=== PATIENT | female | born 1985 | race Caucasian/White ===

== ENCOUNTER 2017-02-02 00:17 | Emergency (ER) | payer OTHER ==
[2017-02-02 00:30] LABS: Urine Bilirubin Negative (NEGATIVE); Urine Blood Negative /ul (NEGATIVE); Urine Ketone Negative (NEGATIVE); Urine Nitrite Negative (NEGATIVE); Urine Protein Negative (NEGATIVE); Urine Specific Gravity 1.025 SP.GR. (1.005-1.010); Urine Urobilinogen Normal (NORMAL)
[2017-02-02 00:42] LABS: Urine Appearance Clear; Urine Bacteria None Seen; Urine Color Yellow; Urine RBC None Seen /hpf (0-5); Urine WBC None Seen /hpf (0-5)
[2017-02-02 00:51] LABS: Hematocrit 37.1 % (37.0-47.0); Hemoglobin 12.9 gm/dL (12.5-16.0); Mean Cell Volume 85.3 fl (78-100); Mean Corpuscular Hemoglobin 29.7 pg (27-31); Mean Corpuscular Hgb Conc 34.8 g/dl (32-36); Mean Platelet Volume 9.4 fl (6.0-9.5); Neutrophil % 59.6 % (42-75.0); Platelet Count 247 K/mm3 (150-450); Red Blood Count 4.35 M/mm3 (4.2-5.4); Red Cell Distribution Width 12.9 % (11.5-14.0)
[2017-02-02] MEDS ORDERED: NORMAL SALINE 1,000 ML IV ONE (01:01)
--- NOTE | 2017-02-02 01:01 | ERNOTE ---
ER Female HPI Date of Service: 02/02/17 Stated Complaint: CRAMPING - 8 WEEKS Presenting Symptoms: pelvic pain, vaginal discharge Time Seen by Provider: 02/02/17 00:45 Source: patient, RN notes reviewed Exam Limitations: no limitations Immunizations: IMMUNIZATION HX Immunizations Up to Date Yes History of Influenza Vaccine Yes Hx Pneumococcal Vaccination Yes Allergies/Adverse Reactions: Allergies cefaclor [From Ceclor] Allergy (Verified 02/02/17 00:24) Penicillins Allergy (Verified 02/02/17 00:24) Home Medications: HOME MEDICATIONS Nik361/Iron Fumarate/FA/Dss [ 19 Tablet] 1 each PO DAILY 02/02/17 [Last Taken Unknown] metroNIDAZOLE [Metrogel-Vaginal] 70 gm VG DAILY #1 gel.w.appl 02/02/17 [Last Taken Unknown] - History of Present Illness Narrative: maura is a 31 year old female who presents to the er with c/o suprapubic cramps for 1 day. states that she is currently 8 weeks . LMP 12/05/16. denies any vaginal bleeding. no fever. c/o malaise. no n/v. states that she feels she has been drinking enough water during the day but also states that he urine has been dark colored throughout the day. no cp, no dyspnea. no syncope. suprapubic cramps were an 8 upon arrival to the ER but this has decreased to a 3-4/10 after voiding. Timing: Present: constant, getting worse Quality: Present: moderate, severe, cramping Onset Location: Present: suprapubic Radiation: Present: none Activities at Onset: Present: none Prior Abdominal Problems: Present: none Sexual Emmet History: Present: other - currently Modifying Factors - (Improves): Present: other - none Modifying Factors - (Worsens): Present: other - none Associated Symptoms: Present: denies symptoms Review of Systems - Review of Systems Constitutional: Present: malaise. Absent: fever, chills EYE: Present: no symptoms reported ENT: Present: no symptoms reported Respiratory: Present: no symptoms reported Cardiology: Present: no symptoms reported Gastrointestinal/Abdominal: Present: other - suprapubic cramping Genitourinary: Present: pain, discharge - vaginal Musculoskeletal: Present: no symptoms reported Skin: Present: no symptoms reported Neurological: Present: no symptoms reported Endocrine: Present: no symptoms reported Hematologic/Lymphatic: Present: no symptoms reported Psych: Present: no symptoms reported All Other Systems: All systems neg except as marked - Patient's Past Medical History Patient History - Medical: No pertinent hx Patient History - Cardiac/Respiratory: No pertinent hx Patient History - Cancer: No Hx of Cancer Patient History - Surgical Procedures: LMP (females 10-50): - Social History Living Situations: home Psych History: No pertinent hx Smoking Status: Never smoker Alcohol Use: none Drug Use: none - Immunizations Immunizations Up to Date: Yes Hx Pneumococcal Vaccination: Yes History of Influenza Vaccine: Yes Physical Exam - Physical Exam General Appearance: Present: wd/wn, alert, mild distress Eye Exam: Normal inspection: bilateral, PERRL: bilateral Ears, Nose, Throat: Present: normal ENT inspection Neck: Present: nontender, supple, other Respiratory: Present: no respiratory distress, normal breath sounds, no accessory muscle use, chest nontender, lungs clear Cardiovascular/Chest: Present: regular rate, rhythm, normal peripheral pulses Peripheral Pulses: N=norm/S=strong/W=weak/B=bound/A=absent: Radial (R): Strong, Radial (L): Strong, Dorsalis-pedis (R): Strong, Dorsalis-pedis (L): Strong Gastrointestinal/Abdominal: Present: nontender, nondistended, soft Rectal Exam: Present: nontender Back Exam: Present: normal inspection, no CVA tenderness, no vertebral tenderness Extremity Exam: Present: normal inspection, non-tender, normal range of motion, no edema Neurological Exam: Present: alert, oriented, normal mood/affect Skin Exam: Present: normal color, warm/dry Pelvic Exam: Present: discharge - yellowish white vaginal discharge present with odor - sent for wet prep. . Absent: active bleeding ED Progress - Date and Time Seen: Date and Time: 02/02/17 01:12 wet prep shows: - no yeast or trich - rare bacteria - rare wbc - rare wbc - clue cells present - rare rbc's. - Results and Orders Results and Orders: Laboratory Tests 02/02/17 02/02/17 00:26 00:45 WBC 10.0 Hgb 12.9 Hct 37.1 Plt Count 247 Neutrophils % 59.6 Eosinophils # 0.1 Urine Color Yellow Urine Appearance Clear Urine pH 6.0 Ur Specific Bishop 1.025 Urine Protein Negative Urine Glucose (UA) Negative Urine Ketones Negative Urine Blood Negative Urine Nitrate Negative Urine Bilirubin Negative Urine Urobilinogen Normal Ur Leukocyte Esterase Negative Urine RBC None seen Urine WBC None seen Ur Epithelial Cells >25 H Urine Bacteria None seen Urine Culture Comments No culture indicated Laboratory Tests 02/02/17 02/02/17 00:45 00:45 Sodium 139 Potassium 3.5 Chloride 103 Carbon Dioxide 25.3 Anion Gap 14.2 H BUN 10 Creatinine 0.61 Est GFR (Non-Af Amer) 123 D BUN/Creatinine Ratio 16.4 Random Glucose 95 Calcium 8.8 Calcium Adj for Albumin 9.1 Total Bilirubin 0.1 AST 14 ALT 21 Alkaline Phosphatase 50 Total Protein 6.9 Albumin 3.2 L Maternal Serum HCG [id number] H - Vital Signs Vital Signs: Vital Signs 02/02/17 00:20 Temperature 36.9 C Pulse Rate 77 Respiratory 18 Rate Blood Pressure 120/71 O2 Sat by Pulse 100 Oximetry - Progress/Reassessment Chief Complaint: Genitourinary Problem Progress:: Improved Departure Clinical Impression: BV (bacterial vaginosis), Mild dehydration Qualifiers: Weeks of gestation: unspecified Qualified Code(s): Z33.1 - state, incidental - Departure Disposition: Home self-care Condition: Stable Instructions: Bacterial Vaginosis, Rehydration, Adult Additional Instructions: Push lots of fluids. Start Metrogel vaginal in the am. Prescriptions: metroNIDAZOLE [Metrogel-Vaginal] 70 gm VG DAILY #1 gel.w.appl
--- OUTSIDE RECORDS SUMMARY | 2017-02-02 01:05 | XMS REPORT | Continuity of Care Document ---
:1985 Author Organization [facility] ([facility]) Address [address] [place] [address] Phone [phone] Care Team Providers Name Role Phone Unavailable Primary Care Provider Unavailable Source Comments This disclosure is being made pursuant to the Care Everywhere program, applicable federal and state laws, and may not contain all informaitonavailable regarding this patient.[facility] ([facility]) Active Allergies and Adverse Reactions Allergen Noted Date Severity Reactions Comments Cefaclor Urticaria (Hives) Penicillins Urticaria (Hives) Current Medications Not on file Active Problems Problem Noted Date Carrier or suspected carrier of group B Streptococcus 10/29/2006 state, incidental 10/29/2006 Oligohydramnios, antepartum 10/26/2006 Social History Tobacco Use Types Packs/Day Years Used Date Never Assessed Last Filed Vital Signs Vital Sign Reading Time Taken Blood Pressure 122/77 11/29/2006 8:00 AM CDT Pulse 89 11/29/2006 8:00 AM CDT Temperature 37 C (98.6 F) 11/29/2006 8:00 AM CDT Respiratory Rate 18 11/29/2006 8:00 AM CDT Height 1.65 m (5' 4.96") 10/29/2006 2:22 PM [employer] Weight 88.397 kg (194 lb 14.1 oz) 10/29/2006 2:22 PM [employer] Body Mass Index 32.47 10/29/2006 2:22 PM [employer] Oxygen Saturation - - Plan of Care Health Maintenance Due Date Last Done Comments Hepatitis B Vaccine (1 of 3 - Primary Series) 1987 Tdap Vaccine 1998 Cervical Cancer Screening 2005 Lipid Disorder Screening 2005 MMR Vaccine 2005 Td Vaccine 2005 Varicella Vaccine (1 of 2 - Adult - No Evidence of 2005 Immunity) Influenza Vaccine: Seasonal (#1) 03/26/2016 Results from Last 3 Months Not on file
[2017-02-02 01:25] LABS: Albumin * 3.2 gm/dl (3.4-5.0); Anion Gap 14.2 mmol/L (6.8-13.8); BUN/Creatinine Ratio 16.4 (9.0-21.6); Bilirubin, Total 0.1 mg/dL (0.0-1.1); Ca. Corrected For Albumin 9.1 mg/dL (8.4-10.2); Calcium * 8.8 mg/dL (7.9-10.9); Carbon Dioxide 25.3 mmol/L (24-32.6); Potassium 3.5 mmol/L (3.4-4.6); Total Protein 6.9 gm/dL (6.2-8.2)
[2017-02-02 02:19] VITALS: BP 118/74
== END 2017-02-02 02:20 | disposition home or self-care (01) ==
LOC: ER 00:17
DX: N76.0 Acute vaginitis (principal); E86.0 Dehydration; Z33.1 Pregnant state, incidental; Z3A.08 8 weeks gestation of pregnancy

== ENCOUNTER 2017-03-02 23:14 | Emergency (ER) | payer OTHER ==
[2017-03-02 23:36] VITALS: BP 132/87
[2017-03-02] MEDS ORDERED: HYDROcodone/ACETAMINOPHEN 1 EACH TABLET PO ONE (23:44)
[2017-03-02] MEDS ORDERED: HYDROcodone/ACETAMINOPHEN 1 EACH TABLET ONE (23:48)
--- NOTE | 2017-03-02 23:48 | ERNOTE ---
ENT HPI Time Seen by Provider: 03/02/17 23:28 Source: patient Exam Limitations: no limitations - Immun/Allergies/Home Medications Immunizations: IMMUNIZATION HX Immunizations Up to Date Yes History of Influenza Vaccine No Hx Pneumococcal Vaccination No Allergies/Adverse Reactions: Allergies Allergy/AdvReac Type Severity Reaction Status Date / Time cefaclor [From [facility]] Allergy Verified 03/02/17 23:36 Penicillins Allergy Verified 03/02/17 23:36 Home Medications: HOME MEDICATIONS Aha809/Iron Fumarate/FA/Dss [ 19 Tablet] 1 each PO DAILY 02/02/17 [Last Taken Unknown] HYDROcodone/ACETAMINOPHEN [[place] 5-325] 1 - 2 tab PO QID PRN #6 tab 03/02/17 [ Last Taken Unknown] - History of Present Illness Narrative: pt is and two days ago her filling fell out in tooth number 15. she is now here in the emergency room for tooth pain. Denies any fevers or chills. Review of Systems - Review of Systems Constitutional: Present: no symptoms reported EYE: Present: no symptoms reported ENT: Present: See HPI Respiratory: Present: no symptoms reported Cardiology: Present: no symptoms reported Gastrointestinal/Abdominal: Present: no symptoms reported Genitourinary: Present: no symptoms reported Musculoskeletal: Present: no symptoms reported Skin: Present: no symptoms reported - Patient's Past Medical History Patient History - Medical: No pertinent hx Patient History - Cardiac/Respiratory: No pertinent hx Patient History - Cancer: No Hx of Cancer Patient History - Surgical Procedures: Patient History - Other: None LMP (females 10-50): 3 months - Social History Living Situations: significant other Psych History: No pertinent hx Smoking Status: Current every day smoker Have you smoked in the past 12 months: Yes Do you dip or chew tobacco: No Alcohol Use: none Drug Use: none - Immunizations Immunizations Up to Date: Yes Hx Pneumococcal Vaccination: No History of Influenza Vaccine: No Physical Exam - Physical Exam General Appearance: Present: wd/wn, alert, no apparent distress Ears, Nose, Throat: Present: other - patient does have a filling that is out of place, she has placed a temporary filling on tooth #15 there is no gingival swelling no lesions no signs of any infection. Neck: Present: normal inspection Respiratory: Present: no respiratory distress, normal breath sounds, no accessory muscle use, chest nontender, lungs clear Cardiovascular/Chest: Present: regular rate, rhythm, no murmur, normal peripheral pulses ED Progress - Vital Signs Patient's Vital Signs:: I have reviewed the patient's vital signs. Vital Signs: Vital Signs 03/02/17 23:30 Temperature 36.8 C Pulse Rate 79 Respiratory 16 Rate Blood Pressure 132/87 O2 Sat by Pulse 98 Oximetry - Progress/Reassessment Chief Complaint: Dental Problem Plan - Plan Plan: Patient has dental issues for which she needs to see a dentist I will give her pain medication but she does need a follow-up with a dentist on Saturday Departure Clinical Impression: Pain, dental - Departure Disposition: Home self-care Condition: Good Instructions: Tooth Injuries Additional Instructions: Please go see a dentist on Saturday morning. Prescriptions: HYDROcodone/ACETAMINOPHEN [[place] 5-325] 1 - 2 tab PO QID PRN #6 tab PRN Reason: Pain
== END 2017-03-02 23:55 | disposition home or self-care (01) ==
LOC: ER 23:14
DX: O26.891 Other specified pregnancy related conditions, first trimester (principal); K08.89 Other specified disorders of teeth and supporting structures; Z3A.12 12 weeks gestation of pregnancy; O99.331 Smoking (tobacco) complicating pregnancy, first trimester